=== PATIENT | male | born 1955 | race Two or more races ===

== ENCOUNTER 2023-03-08 05:36 | Emergency (ER) | payer OTHER ==
[~2023-03-08] VITALS: Ht 170.2 cm; Wt 85.3 kg
[2023-03-08] MEDS ORDERED: CRESTOR5 MG PO (05:58)
[2023-03-08] MEDS ORDERED: TRIAMCINOLONE ACE (05:59)
[2023-03-08] MEDS ORDERED: CYCLOSPORINE1 EACH (05:59)
[2023-03-08] MEDS ORDERED: ASPIR-TRIN325 MG PO (05:59)
[2023-03-08 09:02] LABS: HEMATOCRIT 46.3 % (39.0-48.0); HEMOGLOBIN 15.8 g/dL (13-16.00); MEAN CELL VOLUME 97.1 fL (80.0-100.00); MEAN CORPUSCULAR HEMOGLOBIN 33.1 pg (27.00-32.0); MEAN CORPUSCULAR HGB CONC 34.1 g/dl (32.0-36.0); PLATELET COUNT 177 K/uL (150-450); RED BLOOD COUNT 4.77 M/uL (4.00-6.00); RED CELL DISTRIBUTION WIDTH 13.3 % (11.5-14.5)
== END 2023-03-08 10:21 | disposition home or self-care (01) ==
LOC: ER 05:36
PROVIDERS: General Practice
DX: U07.1 COVID-19 (principal); R05.8 Other specified cough